=== PATIENT | male | born 1990 | race African-American/Black ===

== ENCOUNTER 2022-03-28 06:27 | Emergency (ER) | payer OTHER, SELFPAY ==
[2022-03-28 06:31] VITALS: BP 166/96; PULSE 91; RESP 20; TEMP 36.8; O2SAT 100
--- NOTE | 2022-03-28 07:05 | PC.NURSE ---
Report given to Virgen EASLEY
[2022-03-28] MEDS: IBUPROFEN 400 MG TABLET 800 MG PO (07:24)
--- NOTE | 2022-03-28 07:28 | ED.EAR ---
HPI - Ear Problem General Chief complaint: Ear Stated complaint: R ear pain Time Seen by Provider: 03/28/22 07:06 Source: patient and RN notes reviewed Mode of arrival: ambulatory Limitations: no limitations History of Present Illness HPI Narrative: This is a 31 year old male who presents for evaluation of right ear pain. He has reports has had pain for 2 days. He feels like something is in his ear. He reports subjective fever last night. He denies fever, chills or URI symptoms. He denies swimming. He denies drainage. He took tylenol yesterday for his pain but nothing else. Related Data Allergies Allergy/AdvReac Type Severity Reaction Status Date / Time No Known Allergies Allergy Verified 03/28/22 06:37 Review of Systems Review of Systems: All systems reviewed & are unremarkable except as noted in HPI and below Constitutional: Constitutional: Denies chills, Denies fatigue and Reports fever(s) ENT: Denies vertigo, Denies nasal congestion and Denies sore throat PMFSH Past Medical History Medical History (Updated 03/28/22 @ 07:36 by Anna Marie Nesbitt MD) Patient denies medical problems Surgical History Surgical History (Updated 03/28/22 @ 07:33 by Anna Marie Nesbitt MD) No pertinent past surgical history Social History Social History (Updated 03/28/22 @ 07:33 by Anna Marie Nesbitt MD) Smoking status: Never smoker Exam Const: General: no acute distress and alert Nutritional Appearance: well nourished Orientation/consciousness: patient oriented x3 HENMT: Head: normal to inspection Ears: Abnormal EAC present erythema, edema, EAC tenderness and otic discharge General nose exam: Normal external nose present Face and sinus: normal facial exam Mouth: Yes Normal oral and palatal mucosa present Teeth and gingiva: dentition normal Other: right preauricular lymph node Eyes: Pupils: Equal, round and reactive pupils present EOM: EOMs intact bilaterally Resp: Effort & Inspection: normal respiratory effort Auscultation: clear to auscultation bilaterally Cardio: Rate: regular rate Rhythm: regular rhythm Skin: General skin exam: normal color Rashes: no rashes Wounds: no wounds Neuro: General: patient oriented x3 and CN's II-XI intact bilaterally Cranial nerves: Yes Nystagmus not present Speech: normal speech Psych: Mental Status: mental status grossly normal Affect: normal affect Course Reevaluation(s) Reevaluation #1: I discussed with patient diagnosis of otitis externa. UNable to seem TM. Date: 03/28/22 Time: 07:34 Vital Signs Vital signs: Vital Signs Temperature 98.3 F 03/28/22 06:31 Pulse Rate 91 03/28/22 06:31 Respiratory Rate 20 03/28/22 06:31 Blood Pressure 166/96 H 03/28/22 06:31 Pulse Oximetry 100 03/28/22 06:31 Oxygen Delivery Room Air 03/28/22 06:31 Temperature 98.4 F 03/28/22 07:55 Pulse Rate 77 03/28/22 07:55 Respiratory Rate 16 03/28/22 07:55 Blood Pressure 153/91 H 03/28/22 07:55 Pulse Oximetry 99 03/28/22 07:55 Oxygen Delivery Room Air 03/28/22 06:31 Medical Decision Making Vital Signs Vital Signs: Vital Signs Temperature 98.3 F 03/28/22 06:31 Pulse Rate 91 03/28/22 06:31 Respiratory Rate 20 03/28/22 06:31 Blood Pressure 166/96 H 03/28/22 06:31 Pulse Oximetry 100 03/28/22 06:31 Oxygen Delivery Room Air 03/28/22 06:31 Temperature 98.4 F 03/28/22 07:55 Pulse Rate 77 03/28/22 07:55 Respiratory Rate 16 03/28/22 07:55 Blood Pressure 153/91 H 03/28/22 07:55 Pulse Oximetry 99 03/28/22 07:55 Oxygen Delivery Room Air 03/28/22 06:31 Discharge Plan Discharge Clinical Impression: Otitis externa Qualifiers: Otitis externa type: unspecified type Chronicity: acute Laterality: right Qualified Code(s): H60.501 - Unspecified acute noninfective otitis externa, right ear Patient Disposition: Home, Self-Care Condition: Stable Instructions: Antibiotic Form, Ear Infection (ED)
[2022-03-28 07:55] VITALS: BP 153/91; PULSE 77; RESP 16; TEMP 36.9; O2SAT 99
== END 2022-03-28 07:55 | disposition home or self-care (01) ==
PROVIDERS: Emergency Provider General Practice
DX: H60.501 Unspecified acute noninfective otitis externa, right ear (principal)
CPT/HCPCS: 99283; A9270